=== PATIENT | female | born 1975 | race American Indian/Alaskan Native ===

== ENCOUNTER 2016-12-23 17:24 | Emergency (ER) | payer SELFPAY ==
[2016-12-23 18:37] LABS: Bilirubin,Urine NEG (Negative); Blood,Urine NEG (Negative); Ketones,Urine NEG (Negative); Leukocyte Esterase,Urine NEG (Negative); Mucus,Urine FEW /HPF; Nitrite,Urine NEG (Negative); Urobilinogen,Urine < 2.0 mg/dL (<2.0); WBC,Urine < 1.0 /HPF (0.0-6.0)
[2016-12-23 19:31] LABS: Basophils % (Auto) 0.5 % (0.0-1.8); Eosinophils % (Auto) 1.5 % (0.0-4.3); Hematocrit 37.3 % (30.3-42.9); Hemoglobin 11.9 gm/dl (10.1-14.3); Mean Corpuscular HGB Conc 32 % (30-34); Platelet Count 269 K/mm3 (140-440); Red Blood Count 5.38 M/mm3 (3.65-5.03); Red Cell Distribution Width 14.3 % (13.2-15.2); White Blood Count 14.3 K/mm3 (4.5-11.0)
[2016-12-23 19:36] LABS: Mean Corpuscular Hemoglobin 22 pg (28-32); Mean Corpuscular Volume 69 fl (79-97)
[2016-12-23 19:49] LABS: Albumin 4.1 g/dL (3.9-5); Albumin/Globulin Ratio 0.9 %; BUN/Creatinine Ratio 22.5; Bilirubin,Total 0.2 mg/dL (0.1-1.2); Calcium 9.4 mg/dL (8.4-10.2); Chloride 95.9 mmol/L (98-107); Potassium 3.8 mmol/L (3.6-5.0); Total Protein 8.5 g/dL (6.3-8.2)
[2016-12-23] MEDS ORDERED: XYLOCAINE 1% MPF 5 mL INFILTRATI ONE (21:59)
[2016-12-23] MEDS ORDERED: ROCEPHIN IM ONE (21:59)
[2016-12-23] MEDS ORDERED: FLAGYL PO ONE (22:00)
[2016-12-23] MEDS ORDERED: ULTRAM PO ONE (22:01)
--- NOTE | 2016-12-23 22:33 | Emergency Department Report ---
ED Female HPI - General Chief complaint: Abdominal Pain Stated complaint: ABD PAIN,NAUSEA Time Seen by Provider: 12/23/16 20:30 Source: patient Mode of arrival: Ambulatory Limitations: No Limitations - History of Present Illness MD Complaint: vaginal discharge (yellowish) -: week(s) (1) Location: suprapubic Radiation: other Severity: severe Severity scale (0 -10): 5 Quality: cramping Consistency: intermittent Worsens with: intercourse Associated Symptoms: vaginal discharge - Related Data Sexually active: Yes Home Medications Medication Instructions Recorded Confirmed Last Taken Lisinopril [Zestril TAB] 37.5 mg PO QDAY 12/23/16 12/23/16 12/23/16 08:00 Previous Rx's Medication Instructions Recorded Last Taken Type Ketorolac [Toradol] 10 mg PO Q6H PRN #14 tablet 12/23/16 Unknown Rx metroNIDAZOLE [Flagyl TAB] 500 mg PO Q12HR #20 tab 12/23/16 Unknown Rx Allergies Allergy/AdvReac Type Severity Reaction Status Date / Time shellfish derived Allergy Itching Verified 12/23/16 20:13 ED Review of Systems ROS: Stated complaint: ABD PAIN,NAUSEA Other details as noted in HPI Comment: All other systems reviewed and negative Constitutional: no symptoms reported Genitourinary: urgency, other (vaginal discharge) ED Past Medical Hx - Past Medical History Hx Hypertension: Yes Additional medical history: obesity - Surgical History Hx Cholecystectomy: Yes - Family History Family history: hypertension - Social History Smoking Status: Never Smoker Substance Use Type: None - Medications Home Medications: Home Medications Medication Instructions Recorded Confirmed Last Taken Type Ketorolac [Toradol] 10 mg PO Q6H PRN #14 tablet 12/23/16 Unknown Rx Lisinopril [Zestril TAB] 37.5 mg PO QDAY 12/23/16 12/23/16 12/23/16 08:00 History metroNIDAZOLE [Flagyl TAB] 500 mg PO Q12HR #20 tab 12/23/16 Unknown Rx ED Physical Exam - General Limitations: No Limitations General appearance: alert - Head Head exam: Present: atraumatic - Eye Eye exam: Present: normal appearance, PERRL, EOMI Pupils: Present: normal accommodation - ENT ENT exam: Present: normal exam - Neck Neck exam: Present: normal inspection - Respiratory Respiratory exam: Present: normal lung sounds bilaterally - Cardiovascular Cardiovascular Exam: Present: regular rate, normal rhythm - GI/Abdominal GI/Abdominal exam: Present: soft - Speculum exam: Present: vaginal discharge (yellowish, foul-smelling) - Extremities Exam Extremities exam: Present: normal inspection - Back Exam Back exam: Present: normal inspection - Skin Skin exam: Present: warm ED Course Vital Signs 12/23/16 12/23/16 12/23/16 17:44 20:14 20:15 Temperature 98.4 F Pulse Rate 102 H 91 H Respiratory 18 16 16 Rate Blood Pressure 119/83 Blood Pressure 137/89 [Right] O2 Sat by Pulse 99 99 Oximetry ED Medical Decision Making - Lab Data Result diagrams: 12/23/16 19:07 12/23/16 19:07 Critical care attestation.: If time is entered above; I have spent that time in minutes in the direct care of this critically ill patient, excluding procedure time. ED Disposition Clinical Impression: Vaginitis Disposition: DC-01 TO HOME OR SELFCARE Is pt being admited?: No Does the pt Need Aspirin: No Condition: Stable Instructions: Abdominal Pain (ED) Prescriptions: Ketorolac [Toradol] 10 mg PO Q6H PRN #14 tablet PRN Reason: Pain metroNIDAZOLE [Flagyl TAB] 500 mg PO Q12HR #20 tab Referrals: PRIMARY CARE, [Primary Care Provider] - 3-5 Days
[2016-12-24] MEDS ORDERED: ZOFRAN ODT PO PRN (07:09)
[2016-12-24] MEDS ORDERED: MOTRIN PO PRN (07:09)
[2016-12-24] MEDS: ATIVAN IM PRN ×2 (10:00→22:05)
[2016-12-24] MEDS ORDERED: ZESTRIL PO SCH (10:00)
[2016-12-24] MEDS ORDERED: NON-FORMULARY (Lisinopril [Zestril Tab] 30 MG) PO SCH (10:00)
[2016-12-24] MEDS: ZESTRIL PO SCH (11:13)
[2016-12-24] MEDS: HCTZ PO SCH (11:13)
--- NOTE | 2016-12-24 20:06 | Consultation ---
History of Present Illness - Reason for Consult Consult date: 12/24/16 Reason for consult: Mental Health Evaluation Requesting physician: GIACOMO VIEIRA - Chief Complaint Chief complaint: "I want rest and the voices to go away" - History of Present Psychiatric Illness 41 y.o. black female presenting to [facility] for vaginal discharge. Psychiatry was consulted to see the patient because she is experiencing AH's. Today patient is calm and cooperative during the assessment. She stated experiencing AH's in the past when she does not get adequate rest. She stated the voices can be very scary. She stated that she have not talked about her mental illness with her family or close friends. Patient is adamant about getting a job and living a stress free life. She is aware there's resources available for her to use so she can function independently with Bipolar. She denies SI/HI's, AVH's, and depression symptoms. She denies recreational drug use and excessive alcohol consumption. Medications and Allergies Allergies Allergy/AdvReac Type Severity Reaction Status Date / Time shellfish derived Allergy Itching Verified 12/23/16 20:13 Home Medications Medication Instructions Recorded Confirmed Last Taken Type Ketorolac [Toradol] 10 mg PO Q6H PRN #14 tablet 12/23/16 Unknown Rx metroNIDAZOLE [Flagyl TAB] 500 mg PO Q12HR #20 tab 12/23/16 Unknown Rx Hydrochlorothiazide [HCTZ] 25 mg PO QDAY 12/24/16 12/24/16 Unknown History Lisinopril [Zestril] 20 mg PO QDAY 12/24/16 12/24/16 Unknown History Active Meds: Active Medications Hydrochlorothiazide (Hctz) 25 mg PO QDAY [facility] Last Admin: 12/24/16 11:13 Dose: 25 mg Ibuprofen (Motrin) 600 mg PO QID PRN PRN Reason: Pain Lisinopril (Zestril) 20 mg PO QDAY [facility] Last Admin: 12/24/16 11:13 Dose: 20 mg Lorazepam (Ativan) 2 mg IM Q4HR PRN PRN Reason: Agitation Last Admin: 12/24/16 10:00 Dose: 2 mg Ondansetron HCl (Zofran Odt) 4 mg PO QID PRN PRN Reason: Nausea Past psychiatric history - Past Medical History Past Medical History: hypertension Past Surgical History: No surgical history - past Psychiatric treatment and history Psych: Bipolar psychiatric treatment history: Patient is seen at [facility] for Bipolar DO. She denies a fam psy hx. - Social History Social history: Lives alone ([employer] graduate and some college) Mental Status Exam - Vital signs Last Vital Signs Temp 98 F 12/24/16 07:59 Pulse 94 H 12/24/16 11:13 Resp 18 12/24/16 07:59 BP 150/90 12/24/16 11:13 Pulse Ox 100 12/24/16 07:59 - Exam Narrative exam: ROS: (-) psychosis/manic, (-) depression MSE: Appearance: calm, cooperative Behavior: regular eye contact Speech: regular rate and tone Mood: "I am okay" Affect: congruent to mood Thought Process: linear Thought Content: denies SI/HI's and AVH's Motor Activity: ambulatory Cognition: A/Ox 3 Insight: variable Judgment: variable Results Result Diagrams: 12/23/16 19:07 12/23/16 19:07 All other labs normal. Assessment and Plan Assessment and plan: Impression: Historical Dx: Bipolar DO. Today patient is calm and cooperative during the assessment. Patient denies AH's. DDx: R/O Schizophrenia Recommendation/Plan: Evaluate 1013 in 24 hours to determine proper dispo. Start Depakote 500 mg BID for mood. Will consider an antipsychotic if indicated.
[2016-12-25] MEDS: ZESTRIL PO SCH (12:33)
[2016-12-25] MEDS: HCTZ PO SCH (12:33)
--- NOTE | 2016-12-25 12:56 | Progress Note ---
Subjective - Reason for Consult Consult date: 12/25/16 Reason for consult: Psychiatry Follow-up - Chief Complaint Chief complaint: "I got some sleep" 41 y.o. black female presenting to [facility] for vaginal discharge. Psychiatry was consulted to see the patient because she is experiencing AH's. Today patient is calm and cooperative during the assessment. She stated no perceptional disturbances prior to starting sleep. She denies SI/HI's and AVH's. She denies any side effect of the Depakote. Mental Status Exam - Vital signs Last Vital Signs Temp 98.4 F 12/25/16 12:26 Pulse 96 H 12/25/16 12:26 Resp 16 12/25/16 12:29 BP 124/78 12/25/16 12:26 Pulse Ox 98 12/25/16 12:29 - Exam Narrative exam: MSE: Appearance: calm, cooperative Behavior: regular eye contact Speech: regular rate and tone Mood: "well" Affect: congruent to mood Thought Process: linear Thought Content: denies SI/HI's and AVH's Motor Activity: ambulatory Cognition: A/Ox 3 Insight: fair Judgment: fair Assessment and Plan Impression: Historical Dx: Bipolar DO. Today patient is calm and cooperative during the assessment. Patient denies AH's. Recommendation/Plan: Evaluate 1013 in 24 hours to determine proper dispo. Continue Depakote 500 mg BID for mood.
[2016-12-26] MEDS ORDERED: FLAGYL PO ONE (09:57)
[2016-12-26] MEDS: ZESTRIL PO SCH (10:15)
[2016-12-26] MEDS: HCTZ PO SCH (10:15)
--- NOTE | 2016-12-26 16:39 | Progress Note ---
Subjective - Reason for Consult Consult date: 12/26/16 Reason for consult: follow up - Chief Complaint Chief complaint: "The medicine works well with my body." 41 y.o. black female initially presented to [facility] for vaginal discharge. Psychiatry was consulted to see the patient because she was experiencing auditory hallucinations. She states she is no longer experiencing auditory hallucinations. Today patient is calm and cooperative during the assessment. She reports no side effects to the medication. She denies suicidal or homicidal ideation. She denies any side effect of the Depakote. She plans to follow up with [facility] outpatient services for psychiatry. Mental Status Exam - Vital signs Last Vital Signs Temp 98.4 F 12/25/16 12:26 Pulse 80 12/26/16 10:15 Resp 15 12/26/16 05:50 BP 132/78 12/26/16 10:15 Pulse Ox 99 12/26/16 05:50 - Exam Orientation: time, place, person Affect: normal Mood: appropriate Thought content: other (no suicidal or homicidal ideation) Thought Process: Intact Perceptions: none Speech: normal rate and pattern Concentration: focused Motor activity: normal Level of consciousness: alert Memory: Intact Sleep Symptoms: None Interaction: cooperative Assessment and Plan Impression: Historical Dx: Bipolar DO. Today patient is calm and cooperative during the assessment. Patient denies AH and expresses a plan to follow up with mental health treatment at [facility]. She has maintained denial of suicidal ideation. She denies homicidal ideation. Auditory hallucinations have resolved. She reports sleep contributes to auditory hallucinations and she has been able to sleep now. Recommendation/Plan: Rescind 1013. Patient does not meet criteria for the 1013. Recommend continuing Depakote 500 mg BID for mood until follow-up with her psychiatric provider at [facility].
[2016-12-26 18:33] VITALS: BP 130/76
--- NOTE | 2016-12-26 20:03 | Emergency Department Report ---
HPI - General Chief Complaint: Psych Time Seen by Provider: 12/23/16 20:30 ED Past Medical Hx - Past Medical History Previous Medical History?: Yes Hx Hypertension: Yes Hx Psychiatric Treatment: Yes (bipolar) Additional medical history: obesity - Surgical History Hx Cholecystectomy: Yes - Social History Smoking Status: Never Smoker Substance Use Type: None - Medications Home Medications: Home Medications Medication Instructions Recorded Confirmed Last Taken Type Ketorolac [Toradol] 10 mg PO Q6H PRN #14 tablet 12/23/16 Unknown Rx metroNIDAZOLE [Flagyl TAB] 500 mg PO Q12HR #20 tab 12/23/16 Unknown Rx Hydrochlorothiazide [HCTZ] 25 mg PO QDAY 12/24/16 12/24/16 Unknown History Lisinopril [Zestril] 20 mg PO QDAY 12/24/16 12/24/16 Unknown History Divalproex ER [DepaKOTE ER] 500 mg PO BID #60 tablet 12/26/16 Unknown Rx ED Review of Systems ROS: Stated complaint: ABD PAIN,NAUSEA Other details as noted in HPI Constitutional: no symptoms reported Genitourinary: urgency, other (vaginal discharge) Physical Exam - Physical Exam Vital Signs: Vital Signs 12/23/16 12/23/16 12/23/16 17:44 20:14 20:15 Temperature 98.4 F Pulse Rate 102 H 91 H Respiratory 18 16 16 Rate Blood Pressure 119/83 Blood Pressure 137/89 [Right] O2 Sat by Pulse 99 99 Oximetry 12/23/16 12/23/16 12/24/16 23:08 23:29 07:59 Temperature 98 F Pulse Rate 88 94 H Respiratory 18 18 18 Rate Blood Pressure Blood Pressure 142/88 128/67 [Right] O2 Sat by Pulse 97 100 Oximetry 12/24/16 12/24/16 12/25/16 11:13 21:56 12:26 Temperature 97.9 F 98.4 F Pulse Rate 94 H 71 96 H Respiratory 16 16 Rate Blood Pressure 150/90 Blood Pressure 131/80 124/78 [Right] O2 Sat by Pulse 100 98 Oximetry 12/25/16 12/26/16 12/26/16 12:29 05:50 10:15 Temperature Pulse Rate 73 80 Respiratory 16 15 Rate Blood Pressure 132/78 Blood Pressure 131/81 [Right] O2 Sat by Pulse 98 99 Oximetry 12/26/16 12/26/16 12:00 16:00 Temperature 97.6 F 97.5 F L Pulse Rate 78 78 Respiratory 16 16 Rate Blood Pressure Blood Pressure 130/76 130/76 [Right] O2 Sat by Pulse 100 98 Oximetry ED Course Vital Signs 12/23/16 12/23/16 12/23/16 17:44 20:14 20:15 Temperature 98.4 F Pulse Rate 102 H 91 H Respiratory 18 16 16 Rate Blood Pressure 119/83 Blood Pressure 137/89 [Right] O2 Sat by Pulse 99 99 Oximetry 12/23/16 12/23/16 12/24/16 23:08 23:29 07:59 Temperature 98 F Pulse Rate 88 94 H Respiratory 18 18 18 Rate Blood Pressure Blood Pressure 142/88 128/67 [Right] O2 Sat by Pulse 97 100 Oximetry 12/24/16 12/24/16 12/25/16 11:13 21:56 12:26 Temperature 97.9 F 98.4 F Pulse Rate 94 H 71 96 H Respiratory 16 16 Rate Blood Pressure 150/90 Blood Pressure 131/80 124/78 [Right] O2 Sat by Pulse 100 98 Oximetry 12/25/16 12/26/16 12/26/16 12:29 05:50 10:15 Temperature Pulse Rate 73 80 Respiratory 16 15 Rate Blood Pressure 132/78 Blood Pressure 131/81 [Right] O2 Sat by Pulse 98 99 Oximetry 12/26/16 12/26/16 12:00 16:00 Temperature 97.6 F 97.5 F L Pulse Rate 78 78 Respiratory 16 16 Rate Blood Pressure Blood Pressure 130/76 130/76 [Right] O2 Sat by Pulse 100 98 Oximetry ED Medical Decision Making - Lab Data Result diagrams: 12/23/16 19:07 12/23/16 19:07 - Medical Decision Making 1013 will be rescinded by psychiatry. Patient has a planned follow-up with [facility]. I will write her for Depakote 500 twice a day. She is comfortable with this plan and I'm comfortable with this plan. Critical care attestation.: If time is entered above; I have spent that time in minutes in the direct care of this critically ill patient, excluding procedure time. ED Disposition Clinical Impression: Depression Disposition: DC-01 TO HOME OR SELFCARE Is pt being admited?: No Condition: Stable Instructions: Abdominal Pain (ED), Suicide Prevention for Adults (ED) Additional Instructions: Follow-up with [facility] Prescriptions: Divalproex ER [DepaKOTE ER] 500 mg PO BID #60 tablet Ketorolac [Toradol] 10 mg PO Q6H PRN #14 tablet PRN Reason: Pain metroNIDAZOLE [Flagyl TAB] 500 mg PO Q12HR #20 tab Referrals: PRIMARY CARE, [Primary Care Provider] - 3-5 Days
== END 2016-12-26 21:00 | disposition home or self-care (01) ==
LOC: EEVIPCON 17:24 → ED 17:24
DX: F32.9 Major depressive disorder, single episode, unspecified (principal); N76.0 Acute vaginitis; I10 Essential (primary) hypertension; E66.9 Obesity, unspecified; Z91.013 Allergy to seafood
CPT/HCPCS: 36415; 80053; 80164; 81001; 83690; 84703; 85025; 87210; 96372; 99284; J0696; J2060; 87591; Q0162